=== PATIENT | female | born 1975 | race Caucasian/White ===

== ENCOUNTER 2021-11-24 09:09 | Outpatient (CLI) | payer BC, SELFPAY ==
--- NOTE | 2021-11-24 09:15 | CRLHL7_ITS ---
For Patients: As a result of the Century Cures Act, medical imaging exams and procedure reports are released immediately into your electronic medical record. You may view this report before your referring provider. If you have questions, please contact your health care provider. BILATERAL DIGITAL SCREENING MAMMOGRAM WITH COMPUTER-AIDED DETECTION WITH TOMOSYNTHESIS, 11/24/2021 CLINICAL HISTORY: Routine screening exam. COMPARISON: MRI 04/23/2021, mammograms 09/09/2020, 08/25/18 TECHNIQUE: Digital mammogram in CC and MLO projections including computer-aided detection (CAD) and tomosynthesis. BREAST COMPOSITION: The breasts are heterogeneously dense, which may obscure small masses. FINDINGS: RIGHT Breast: Asymmetric density upper outer quadrant 7 cm from the nipple. LEFT Breast: No suspicious findings. Post excision biopsy changes. IMPRESSION: RIGHT breast asymmetry/mass. RECOMMENDATIONS: Additional mammographic views of the RIGHT breast including 3D CC/MLO spot-compression. RIGHT breast ultrasound may also be required. [facility] will contact the patient for follow-up. BI-RADS Category 0: Incomplete - Need Additional Imaging Evaluation Dictated by Tung Sellers MD @ 11/24/2021 12:33:09 PM PT/Dictated by: Tung Sellers MD @ 11/24/2021 12:33:00 PM (Electronically Signed)
== END 2021-11-24 09:10 | disposition home or self-care (01) ==
LOC: MAMMO 09:10
PROVIDERS: PCP Physician Assistant; Visit Provider Surgery
DX: Z12.31 Encounter for screening mammogram for malignant neoplasm of breast (principal); N63.10 Unspecified lump in the right breast, unspecified quadrant
CPT/HCPCS: 77063; 77067

== ENCOUNTER 2021-11-30 09:27 | Outpatient (CLI) | payer BC, SELFPAY ==
--- NOTE | 2021-11-30 09:45 | MM_ITS ---
Final Report Patient: JOSE CARLOS RAHMAN Facility:?[facility] Patient ID:?[id number] :?[id number] Study:?XRay Breast -11/30/2021 10:08:31 AM Ordering Physician:Edgar Vasquez Final Report: RIGHT DIAGNOSTIC MAMMOGRAM WITH TOMOSYNTHESIS AND COMPUTER-AIDED DETECTION RIGHT BREAST ULTRASOUND CLINICAL HISTORY: Abnormal mammogram. TECHNIQUE: RIGHT CC and MLO spot compression views, and RIGHT CC, MLO compression tomosynthesis views were obtained. These mammographic images have been obtained using full-field digital technique. This study was interpreted with the benefit of cad. Targeted breast ultrasound in the RIGHT upper outer quadrant was also performed. COMPARISON FILM: Mammograms 11/24/2021. BREAST COMPOSITION: The breasts are heterogeneously dense, which may obscure small masses FINDINGS: Focal asymmetry resolves with spot compression. No mass, architectural distortion, or other evidence of malignancy. No suspicious microcalcifications. Targeted RIGHT breast ultrasound in the upper outer quadrant is unremarkable. IMPRESSION: 1. No mammographic evidence of malignancy. 2. Targeted RIGHT breast ultrasound is unremarkable. BI-RADS Category 1: Negative RECOMMENDATION: Recommend annual screening mammography. Findings and recommendations were discussed with the patient at the time of the exam. A lay language report of this examination will be provided to the patient. Bong Michel M.D. Diagnostic/Musculoskeletal Radiologist [email or web address]/macy D& Transcribed: 12:18 p.mMoisés cavazos/Dictated by: Bong Michel MD @ 11/30/2021 12:19:00 PM (Electronic Signature)
--- NOTE | 2021-11-30 10:15 | US_ITS ---
Final Report Patient: JOSE CARLOS RAHMAN Facility:?[facility] Patient ID:?[id number] :?[id number] Study:?US Breast Right DR. MICHEL TO READ-11/30/2021 10:21:52 AM Ordering Physician:?Gutierrez Vasquez Final Report: PLEASE SEE DIGITAL DIAGNOSTIC RIGHT MAMMOGRAM PERFORMED SAME DAY CRL:macy cavazos/Dictated by: Bong Michel MD @ 11/30/2021 10:47:00 AM (Electronic Signature)
== END 2021-11-30 09:28 | disposition home or self-care (01) ==
LOC: MAMMO 09:29
PROVIDERS: PCP Physician Assistant; Visit Provider Surgery
DX: R92.8 Other abnormal and inconclusive findings on diagnostic imaging of breast (principal); R92.2 Inconclusive mammogram
CPT/HCPCS: 76642; 77065; G0279

== ENCOUNTER 2022-04-26 13:42 | Outpatient (CLI) | payer BC, SELFPAY ==
--- NOTE | 2022-04-26 13:45 | CRLHL7_ITS ---
For Patients: As a result of the Century Cures Act, medical imaging exams and procedure reports are released immediately into your electronic medical record. You may view this report before your referring provider. If you have questions, please contact your health care provider. BILATERAL BREAST MRI WITHOUT AND WITH GADOLINIUM, 04/26/2022 CLINICAL HISTORY: 47-year-old woman with family history of breast cancer in her mother in her 70s and maternal grandmother at 82. History of benign needle biopsy on the LEFT showing fibroepithelial lesion and LEFT surgical biopsy showing LCIS. INDICATION FOR BREAST MRI: Screening breast MRI in this high-risk woman. COMPARISON STUDIES: Mammogram 11/30/2021. MRI 04/23/2021. CONTRAST: 20 cc Dotarem. TECHNIQUE: The patient was positioned prone using a breast coil. Multiple imaging sequences were obtained using 1-1.5 mm thick slices with no gap. The image sequences include T2-weighted STIR in the axial plane, T1-weighted nonfat-saturated gradient echo in the axial plane, pre- and post-contrast T1-weighted FLASH 3D with fat suppression in the axial plane, and T1-weighted FLASH high-resolution 3D with fat suppression in the sagittal plane. zelda Salmon Image post-processing was performed on a [employer] workstation. Complex 3D rendering including maximum intensity projections (MIPS) and volumetric renderings were obtained to optimize visualization of the extent of pathology and relationship to the nipple, skin, and chest wall. This aids in determining feasibility of breast conservation surgery. Subtraction, multiplanar reconstruction, mean curve determination, and angiogenesis mapping were also performed. The study was technically adequate. FINDINGS: Amount of Fibroglandular Tissue: Heterogeneous fibroglandular tissue. Breast Background Enhancement: Moderate. RIGHT Breast: No suspicious enhancement for malignancy. LEFT Breast: No suspicious enhancement for malignancy. Lymph Nodes: Axillary lymph nodes are normal in size and morphology. IMPRESSIONS AND RECOMMENDATIONS: No evidence for malignancy. Recommend annual screening mammography and annual screening breast MRI to be offset from the mammogram by a six month interval of time. BI-RADS Category 1: Negative Chitra Choi M.D. Breast/Body Radiologist [employer] Transcribed: 3:18 p.m. [email or web address] jj/Dictated by: Chitra Choi MD @ 04/28/2022 3:54:00 PM (Electronically Signed)
== END 2022-04-26 13:43 | disposition home or self-care (01) ==
LOC: MRI 13:45
PROVIDERS: PCP Physician Assistant; Visit Provider Surgery
DX: D24.2 Benign neoplasm of left breast (principal); Z12.31 Encounter for screening mammogram for malignant neoplasm of breast; Z80.3 Family history of malignant neoplasm of breast
CPT/HCPCS: 77049; A9575

== ENCOUNTER 2022-06-03 13:14 | Outpatient (CLI) | payer BC, SELFPAY ==
[2022-06-03 17:35] LABS: Chloride* 107 mmol/L (96-114)
[2022-06-03 17:36] LABS: Albumin* 4.2 g/dL (3.3-5.0); Potassium* 4.7 mmol/L (3.6-5.1); Sodium* 140 mmol/L (135-149)
[2022-06-03 17:38] LABS: Creatinine* 0.6 mg/dL (0.5-1.5); Estimated Glomerular Filt Rate 112 ml/min
[2022-06-03 17:39] LABS: Alanine Aminotransferase* 22 U/L (4-35); Alkaline Phosphatase* 51 U/L (40-150); Aspartate Amino Transferase* 25 U/L (12-35); Bilirubin Total* 0.3 mg/dL (0.1-1.5); Blood Urea Nitrogen* 15 mg/dL (5-24); Calcium* 9.5 mg/dL (8.4-10.6); Carbon Dioxide* 26 mmol/L (20-32); Glucose* 97 mg/dL (60-115); Total Protein* 6.7 g/dL (6.0-8.3)
[2022-06-03 17:42] LABS: C Reactive Protein* 2.4 mg/dL (0.5-1.0)
[2022-06-03 17:56] LABS: Vitamin D 25 Hydroxy* 68 ng/mL (30-80)
[2022-06-03 18:07] LABS: TSH With Reflex to FT4* 0.905 uIU/mL (0.270-4.200)
== END 2022-06-03 13:15 | disposition home or self-care (01) ==
PROVIDERS: PCP Physician Assistant; Visit Provider Physician Assistant
DX: R53.83 Other fatigue (principal); M79.10 Myalgia, unspecified site
CPT/HCPCS: 80053; 82306; 82652; 84443; 86140

== ENCOUNTER 2022-11-05 11:48 | Outpatient (CLI) | payer MEDICARE, SELFPAY | END 2022-11-05 11:49 | disposition home or self-care (01) | LOC: NFLDREF 11:50 | PROVIDERS: PCP Physician Assistant; Visit Provider Physician Assistant | DX: R53.83 Other fatigue (principal); N92.0 Excessive and frequent menstruation with regular cycle | CPT/HCPCS: 84443 ==

== ENCOUNTER 2022-11-26 12:49 | Outpatient (CLI) | payer MEDICARE, SELFPAY ==
--- NOTE | 2022-11-26 13:00 | CRLHL7_ITS ---
For Patients: As a result of the Century Cures Act, medical imaging exams and procedure reports are released immediately into your electronic medical record. You may view this report before your referring provider. If you have questions, please contact your health care provider. INDICATION: EXCESSIVE AND FREQUENT MENSTRUATION COMPARISON: 09/09/2020 TECHNIQUE: 2D flaherty scale and color Doppler images were acquired of the pelvis using a transabdominal and transvaginal approach. FINDINGS: Exophytic anterior uterine fibroid again noted measuring 4.3 x 4.3 x 3.8 cm. Previously, this measured 4.1 x 3.5 x 5.6 cm. Uterus measures 6.9 cm in length by 5.2 cm in AP diameter by 5.5 cm in transverse dimension. The endometrial lining measures 10 mm in composite thickness. The right ovary measures 4.1 x 2.4 x 2.9 cm in size and the left ovary measures 2.2 x 1.4 x 2.1 cm. The ovaries demonstrate normal arterial and venous blood flow on color Doppler analysis. There are no suspicious fluid collections within the cul-de-sac. A small collapsing right ovarian cyst is incidentally noted measuring 1.6 cm. Trace physiologic free fluid noted. IMPRESSION: Exophytic uterine fibroid is similar. Endometrial thickness 1 cm. No endometrial fluid. Dictated by Tung Sellers MD @ 11/29/2022 9:50:59 AM (Electronically Signed)
== END 2022-11-26 12:50 | disposition home or self-care (01) ==
LOC: US 12:49
PROVIDERS: PCP Physician Assistant; Visit Provider Physician Assistant
DX: N92.0 Excessive and frequent menstruation with regular cycle (principal)
CPT/HCPCS: 76830; 76856

== ENCOUNTER 2022-12-10 07:38 | Outpatient (CLI) | payer OTHER, SELFPAY ==
--- NOTE | 2022-12-10 07:45 | CRLHL7_ITS ---
For Patients: As a result of the Century Cures Act, medical imaging exams and procedure reports are released immediately into your electronic medical record. You may view this report before your referring provider. If you have questions, please contact your health care provider. BILATERAL SCREENING MAMMOGRAM WITH COMPUTER-AIDED DETECTION AND TOMOSYNTHESIS TECHNIQUE: CC and MLO views were obtained. These mammographic images have been obtained using full-field digital technique. These mammographic images were interpreted with the benefit of computer-aided detection. Breast Tomosynthesis was used in this interpretation. COMPARISON FILM: 11/30/21, 11/24/21, 11/04/20. FINDINGS: The breasts are heterogeneously dense, which may obscure small masses IMPRESSION: There is no radiographic evidence for malignancy. ASSESSMENT: BI-RADS Category 1: Negative RECOMMENDATION: Routine screening mammogram in 1 year. A lay language report of this examination will be provided to the patient. Tung Sellers M.D. Diagnostic Radiologist [email or web address] CHRIS/Dictated by: Tung Sellers MD @ 12/10/2022 9:53:00 AM (Electronically Signed)
== END 2022-12-10 07:39 | disposition home or self-care (01) ==
LOC: MAMMO 07:40
PROVIDERS: PCP Physician Assistant; Visit Provider Surgery
DX: Z12.31 Encounter for screening mammogram for malignant neoplasm of breast (principal); R92.2 Inconclusive mammogram
CPT/HCPCS: 77063; 77067